=== PATIENT | female | born 1975 | race Caucasian/White ===

== ENCOUNTER 2017-05-12 10:47 | Inpatient (IN) | payer SELFPAY ==
[~2017-05-12] VITALS: Ht 162.6 cm; Wt 66.9 kg
[~2017-05-12 10:47] MED LIST: ACHD5005 PO; ALPR1T PO; CITA40TA19 PO; CLON0.5T60 PO; ESTR1TAB15 PO; ESTR2TAB4 PO; GABA300C PO; HYDR-1231 PO; HYDR-3714 PO; HYDR-623 PO; HYDR-707 PO; IBP800T PO; LEVO500T69 PO; LISI10TA PO; MELO7.5T PO; METH4TAB PO; MTC5T PO; PREG75CA PO; PRM25T PO; PROC10TA23 PO; PRX20T PO; SULF1TAB23 PO
--- OUTSIDE RECORDS SUMMARY | 2017-05-12 10:53 | XMS REPORT ---
Author Author CHATA HYATT Organization [employer] Address Unknown Phone Unavailable Care Team Providers Care Lean Manufacturing Specialist Name Role Phone CHATA HYATT CP Unavailable Allergies No Known Allergies Problems Problem Type Condition Code Onset Dates Condition Status Assessment Chronic pain G89.29 Active Problem Other malaise and fatigue 780.79 Active Problem Unspecified myalgia and myositis 729.1 Active Problem Neuropathy G62.9 Active Problem Anxiety F41.9 Active Problem Hypertension I10 Active Problem Diarrhea 787.91 Active Problem Acute pharyngitis 462 Active Problem Chronic pain G89.29 Active Problem Nausea with vomiting 787.01 Active Medications Medication Code System Code Instructions Start Date End Date Status Dosage Mobic [facility] [address]-20 7.5 MG Orally twice a day July 27, 2015 1 tablet Paxil [facility] [address]-72 40 mg Orally Once a day Oct 19, 2015 1 tablet in the morning Results No Known Results Summary Purpose eClinicalWorks Submission
--- OUTSIDE RECORDS SUMMARY | 2017-05-12 10:53 | XMS REPORT ---
Author Author CHATA HYATT [facility] e[employer] Address Unknown Phone Unavailable Care Team Providers Care Clinical Coder Name Role Phone CHATA HYATT Unavailable Allergies, Adverse Reactions, Alerts Substance Reaction Event Type Zofran Info Not Available Drug Allergy Ultram Info Not Available Drug Allergy Naproxen Info Not Available Drug Allergy Codeine Info Not Available Drug Allergy Problems Problem Type Condition Code Onset Dates Condition Status Assessment Gastroenteritis K52.9 Active Problem Other malaise and fatigue 780.79 Active Problem Unspecified myalgia and myositis 729.1 Active Assessment Anxiety F41.9 Active Assessment Chronic pain G89.29 Active Problem Neuropathy G62.9 Active Problem Anxiety F41.9 Active Problem Hypertension I10 Active Problem Diarrhea 787.91 Active Problem Acute pharyngitis 462 Active Problem Chronic pain G89.29 Active Problem Nausea with vomiting 787.01 Active Medications Medication Code System Code Instructions Start Date End Date Status Dosage Paxil [facility] [address]-49 40 mg Orally Once a day Oct 19, 2015 1 tablet in the morning Lisinopril [facility] [address]-70 20 mg Orally Once a day Sep 21, 2015 1 tablet Promethazine HCl [facility] [address]-86 25 MG Orally 3 times a day Oct 31, 2015 1 tablet as needed Valium [facility] [address]-14 5 mg Orally 3 times a day 1 tablet as needed Lyrica [facility] [address]-60 100 MG Orally Twice a day at noon and pm Oct 31, 2015 1 capsule Mobic [facility] [address]-96 7.5 MG Orally twice a day July 27, 2015 1 tablet Lyrica [facility] [address]-60 150 MG Orally Once a day in am Oct 31, 2015 1 capsule Percocet [facility] [address]-25 10-325 MG Orally 2 times a day Oct 19, 2015 1 tablet Procedures Procedure Coding System Code Date THER/PROPH/DIAG INJ, SC/IM CPT-4 63334 Oct 31, 2015 Office Visit, Est Pt., Level 3 CPT-4 20255 Oct 31, 2015 PHENERGAN 50MG/ML CPT-4 J2550 Oct 31, 2015 Vital Signs Date/Time: Oct 31, 2015 Cardiac Monitoring Heart Rate 100 bpm Weight 152.8 lbs Height 64 in BMI 26.23 Index Blood Pressure Diastolic 88 mmHg Blood Pressure Systolic 118 mmHg Results No Known Results Summary Purpose eClinicalWorks Submission
--- OUTSIDE RECORDS SUMMARY | 2017-05-12 10:53 | XMS REPORT ---
Author Author CHATA HYATT Organization [employer] Address Unknown Phone Unavailable Care Team Providers Care Hooker Operator Name Role Phone CHATA HYATT CP Unavailable Allergies No Known Allergies Problems Problem Type Condition Code Onset Dates Condition Status Assessment Neuropathy G62.9 Active Problem Other malaise and fatigue 780.79 Active Problem Unspecified myalgia and myositis 729.1 Active Problem Neuropathy G62.9 Active Problem Anxiety F41.9 Active Problem Hypertension I10 Active Problem Diarrhea 787.91 Active Problem Acute pharyngitis 462 Active Problem Chronic pain G89.29 Active Problem Nausea with vomiting 787.01 Active Medications Medication Code System Code Instructions Start Date End Date Status Dosage Lyrica [facility] [address]-59 100 MG Orally Twice a day Oct 31, 2015 1 capsule at noon and evening Lyrica [facility] [address]-84 150 MG Orally Once a day Oct 31, 2015 1 capsule in the morning Results No Known Results Summary Purpose eClinicalWorks Submission
--- OUTSIDE RECORDS SUMMARY | 2017-05-12 10:53 | XMS REPORT ---
Author Author CHATA HYATT Organization [employer] Address Unknown Phone Unavailable Care Team Providers Care Quality Analyst Name Role Phone CHATA HYATT CP Unavailable Allergies No Known Allergies Problems Problem Type Condition Code Onset Dates Condition Status Problem Other malaise and fatigue 780.79 Active Problem Unspecified myalgia and myositis 729.1 Active Problem Neuropathy G62.9 Active Problem Anxiety F41.9 Active Problem Hypertension I10 Active Problem Diarrhea 787.91 Active Problem Acute pharyngitis 462 Active Problem Chronic pain G89.29 Active Problem Nausea with vomiting 787.01 Active Medications No Known Medications Results No Known Results Summary Purpose [employer]ClinicalWorks Submission
--- OUTSIDE RECORDS SUMMARY | 2017-05-12 10:53 | XMS REPORT ---
Author Author CHAU FARRIS Organization [facility] Address [address] [place] [address] Care Team Providers Care Driver Service Technician Name Role Phone CHAU FARRIS Unavailable PROBLEMS Type Condition ICD9-CM Code VUZ95-CM Code Onset Dates Condition Status SNOMED Code Problem Other malaise and fatigue 780.79 Active 554311246 Problem Acute pharyngitis 462 Active 850436216 Problem Unspecified myalgia and myositis 729.1 Active 839876060 Problem Diarrhea 787.91 Active 40026478 Problem Nausea with vomiting 787.01 Active 05590461 Problem Depressive disorder, not elsewhere classified F32.9 Active 82603000 Problem Opioid abuse, unspecified F11.10 Active 4445221 Problem Anxiety F41.9 Active 16657659 Problem Neuropathy G62.9 Active 687723758 Problem Chronic pain G89.29 Active 94013445 Problem Hypertension I10 Active 13741082 ALLERGIES Unknown Allergies SOCIAL HISTORY No smoking Hx information available PLAN OF CARE Activity Details Follow Up 2 - 3 Days Reason: VITAL SIGNS MEDICATIONS Unknown Medications RESULTS No Results PROCEDURES Procedure Date Ordered Related Diagnosis Body Site ALCOHOL/DRUG SCREENING Feb 07, 2016 IMMUNIZATIONS No Known Immunizations
--- OUTSIDE RECORDS SUMMARY | 2017-05-12 10:53 | XMS REPORT ---
Author Author CHATA HYATT Organization [facility] Address [address] [place] [address] Care Team Providers Care Stogy Roller Name Role Phone CHATA HYATT Unavailable PROBLEMS Type Condition ICD9-CM Code PRE34-NZ Code Onset Dates Condition Status SNOMED Code Problem Acute pharyngitis 462 Active 502550724 Problem Nausea with vomiting 787.01 Active 99142044 Problem Diarrhea 787.91 Active 34536850 Problem Unspecified myalgia and myositis 729.1 Active 331691505 Problem Other malaise and fatigue 780.79 Active 105181027 Problem Depressive disorder, not elsewhere classified F32.9 Active 00647200 Problem Opioid abuse, unspecified F11.10 Active 8644691 Problem Anxiety F41.9 Active 77388046 Problem Chronic pain G89.29 Active 87995460 Problem Hypertension I10 Active 48253637 Problem Neuropathy G62.9 Active 539853173 ALLERGIES Substance Reaction Event Type Date Status Zofran anaphylaxis Drug Allergy Jan, Active Ultram Palpatations Drug Allergy Jan, Active Naproxen vomiting Drug Allergy Jan, Active Codeine itching Drug Allergy Jan, Active SOCIAL HISTORY No smoking Hx information available PLAN OF CARE Activity Details Follow Up prn Reason: VITAL SIGNS Height 64 in 2016-02-06 Weight 155.1 lbs 2016-02-06 Temperature 97.4 degrees Fahrenheit 2016-02-06 Heart Rate 88 bpm 2016-02-06 Respiratory Rate 20 2016-02-06 BMI 26.62 kg/m2 2016-02-06 Blood pressure systolic 102 mmHg 2016-02-06 Blood pressure diastolic 74 mmHg 2016-02-06 MEDICATIONS Medication Instructions Dosage Frequency Start Date End Date Duration Status Lisinopril 20 mg Orally Once a day 0.5 tablet 24h Sep, Active Paxil 40 mg Orally Once a day 1 tablet in the morning 24h Oct, 30 days Active Lyrica 150 MG Orally Once a day 1 capsule in the morning 24h 20 Oct, 2015 28 days Active Mobic 7.5 MG Orally twice a day 1 tablet 12h 30 Active Valium 5 mg Orally 3 times a day 1 tablet as needed 8h 28 days Active Percocet 10-325 MG Orally 2 times a day 1 tablet 12h 08 Oct, 2015 28 days Active Lyrica 100 MG Orally Twice a day 1 capsule at noon and evening 12h 20 Oct, 2015 28 days Active RESULTS Name Result Date Reference Range [employer] 2016-02-07 PROCEDURES Procedure Date Ordered Related Diagnosis Body Site No Charge Feb 06, 2016 Office Visit, Est Pt., Level 3 Feb 06, 2016 IMMUNIZATIONS No Known Immunizations
--- OUTSIDE RECORDS SUMMARY | 2017-05-12 10:56 | XMS REPORT ---
Author Author CHATA HYATT Organization [employer] Address Unknown Phone Unavailable Care Team Providers Care Scalp Specialist Name Role Phone CHATA HYATT CP [...]
--- OUTSIDE RECORDS SUMMARY | 2017-05-12 10:56 | XMS REPORT ---
Author Author DIANA PARKER [facility] Address [address] [place] [address] Care Team Providers Care Rail Tractor Operator Name Role Phone DIANA PARKER Unavailable PROBLEMS Type Condition ICD9-CM Code [id number] Code Onset Dates Condition Status SNOMED Code Problem Unspecified myalgia and myositis 729.1 Active 519804773 Problem Acute pharyngitis 462 Active 051162656 Problem Other malaise and fatigue 780.79 Active 557251536 Assessment Post-traumatic osteoarthritis of left knee M17.32 Oct, Active 819671085 Problem Hypertension I10 Active 22793789 Problem Neuropathy G62.9 Active 415515509 Problem Nausea with vomiting 787.01 Active 59931934 Problem Diarrhea 787.91 Active 18594591 Problem Anxiety F41.9 Active 58354965 Problem Chronic pain G89.29 Active 89438563 ALLERGIES Unknown Allergies SOCIAL HISTORY No smoking Hx information available PLAN OF CARE VITAL SIGNS Height 64 in 2015-10-12 Blood pressure systolic 130 mmHg 2015-10-12 Blood pressure diastolic 88 mmHg 2015-10-12 MEDICATIONS Unknown Medications RESULTS No Results PROCEDURES Procedure Date Ordered Related Diagnosis Body Site DRAIN/INJECT, JOINT/BURSA Oct 12, 2015 Office Visit, Est Pt., Level 3 Oct 12, 2015 DEPO MEDROL 80 MG/ML Oct 12, 2015 IMMUNIZATIONS No Known Immunizations
--- OUTSIDE RECORDS SUMMARY | 2017-05-12 10:56 | XMS REPORT ---
Author Author CHATA HYATT Organization [employer] Address Unknown Phone Unavailable Care Team Providers Care Cement Mason Apprentice Name Role Phone CHATA HYATT CP Unavailable Allergies No Known Allergies Problems Problem Type Condition Code Onset Dates Condition Status Assessment Anxiety F41.9 Active Problem Other malaise and fatigue 780.79 Active Problem Unspecified myalgia and myositis 729.1 Active Assessment Chronic pain G89.29 Active Problem Neuropathy G62.9 Active Problem Anxiety F41.9 Active Problem Hypertension I10 Active Problem Diarrhea 787.91 Active Problem Acute pharyngitis 462 Active Problem Chronic pain G89.29 Active Problem Nausea with vomiting 787.01 Active Medications Medication Code System Code Instructions Start Date End Date Status Dosage Lyrica [facility] [address]-04 100 MG Orally Twice a day Oct 31, 2015 1 capsule at noon and evening Valium [facility] [address]-57 5 mg Orally 3 times a day 1 tablet as needed Lyrica [facility] [address]-39 150 MG Orally Once a day Oct 31, 2015 1 capsule in the morning Percocet [facility] [address]-26 10-325 MG Orally 2 times a day Oct 19, 2015 1 tablet Results No Known Results Summary Purpose eClinicalWorks Submission
--- OUTSIDE RECORDS SUMMARY | 2017-05-12 10:56 | XMS REPORT ---
Author Author CHATA HYATT Organization [employer] Address Unknown Phone Unavailable Care Team Providers Care Photographic Platemaker Name Role Phone CHATA HYATT CP Unavailable Allergies No Known Allergies Problems Problem Type Condition Code Onset Dates Condition Status Assessment Chronic pain G89.29 Active Problem Other malaise and fatigue 780.79 Active Problem Unspecified myalgia and myositis 729.1 Active Assessment Anxiety F41.9 Active Problem Neuropathy G62.9 Active Problem Anxiety F41.9 Active Problem Hypertension I10 Active Problem Diarrhea 787.91 Active Problem Acute pharyngitis 462 Active Problem Chronic pain G89.29 Active Problem Nausea with vomiting 787.01 Active Medications Medication Code System Code Instructions Start Date End Date Status Dosage Valium [facility] 3[facility] [address]-38 5 mg Orally 3 times a day 1 tablet as needed Lyrica [facility]NOTE 3] [address]-93 150 MG Orally Once a day Oct 31, 2015 1 capsule in the morning Mobic [facility]NOTE 3] [address]-97 7.5 MG Orally twice a day July 27, 2015 1 tablet Paxil [facility]NOTE 3] [address]-38 40 mg Orally Once a day Oct 19, 2015 1 tablet in the morning Lyrica [facility]NOTE 3] [address]-74 100 MG Orally Twice a day Oct 31, 2015 1 capsule at noon and evening Percocet [facility]NOTE 3] [address]-43 10-325 MG Orally 2 times a day Oct 19, 2015 1 tablet Results No Known Results Summary Purpose eClinicalWorks Submission
--- OUTSIDE RECORDS SUMMARY | 2017-05-12 10:56 | XMS REPORT ---
Author Author CHATA HYATT Organization [employer] Address Unknown Phone Unavailable Care Team Providers Care Manager Environmental Health And Safety Name Role Phone CHATA HYATT CP Unavailable [...] Instructions Start Date End Date Status Dosage Percocet [facility] [address]-27 10-325 MG Orally 2 times a day Oct 19, 2015 1 tablet Valium [facility] [address]-23 5 mg Orally 3 times a day 1 tablet as needed Results No Known Results Summary Purpose [employer]ClinicalWorks Submission
--- OUTSIDE RECORDS SUMMARY | 2017-05-12 10:56 | XMS REPORT ---
Author Author CHATA HYATT [facility] eClinicalWorks Address Unknown Phone Unavailable Care Team Providers Care Heeler Name Role Phone CHATA HYATT CP Unavailable Allergies, Adverse Reactions, Alerts Substance Reaction [...] Active Problem Nausea with vomiting 787.01 Active Assessment Depression, unspecified depression type F32.9 Active Assessment Right leg pain M79.604 Active Assessment Chronic pain G89.29 Active Medications Medication Code System Code Instructions Start Date End Date Status Dosage Paxil [facility] [address]-88 40 mg May 18, 2013 1 tablet by Oral route 1 time per day Paxil [facility] [address]-60 40 mg Orally Once a day Oct 19, 2015 1 tablet in the morning Mobic [facility] [address]-67 7.5 MG Orally twice a day July 27, 2015 1 tablet Cyclobenzaprine HCl [facility] [address]-89 10 mg Orally 2 times a day August 02, 2015 1 tablet prior to PT and 1 after Valium [facility] [address]-95 5 mg Orally 3 times a day 1 tablet as needed Lyrica [facility] [address]-39 100 MG Orally 3 times a day June 14, 2015 1 capsule Percocet [facility] [address]-08 10-325 MG Orally 2 times a day Oct 19, 2015 1 tablet Lisinopril [facility] [address]-87 20 mg Orally Once a day Sep 21, 2015 1 tablet Procedures Procedure Coding System Code Date Office Visit, Est Pt., Level 3 CPT-4 72742 Oct 19, 2015 Vital Signs Date/Time: Oct 19, 2015 Cardiac Monitoring Heart Rate 104 bpm Weight 152.9 lbs Height 64 in BMI 26.24 Index Blood Pressure Diastolic 80 mmHg Blood Pressure Systolic 140 mmHg Results No Known Results Summary Purpose eClinicalWorks Submission
--- OUTSIDE RECORDS SUMMARY | 2017-05-12 10:56 | XMS REPORT ---
Author Author CHATA HYATT Organization [facility] Address [address] [place] [address] Care Team Providers Care Plate Former Name Role Phone CHATA HYATT Unavailable PROBLEMS Type Condition ICD9-CM Code PRU10-EU Code Onset Dates Condition Status SNOMED Code Problem Other malaise and fatigue 780.79 Active 949400071 Problem Acute pharyngitis 462 Active 122912231 Problem Unspecified myalgia and myositis 729.1 Active 574591886 Problem Diarrhea 787.91 Active 68583637 Problem Nausea with vomiting 787.01 Active 90606841 Problem Depressive disorder, not elsewhere classified F32.9 Active 94449808 Problem Opioid abuse, unspecified F11.10 Active 5304800 Problem Anxiety F41.9 Active 36651847 Problem Neuropathy G62.9 Active 042566703 Problem Chronic pain G89.29 Active 38600852 Problem Hypertension I10 Active 67857487 ALLERGIES Unknown Allergies SOCIAL HISTORY No smoking Hx information available PLAN OF CARE VITAL SIGNS MEDICATIONS Medication Instructions Dosage Frequency Start Date End Date Duration Status Mobic 7.5 MG Orally twice a day 1 tablet 12h 30 days Active Lisinopril 20 MG Orally Once a day 0.5 tablet 24h Sep, 30 days Active RESULTS No Results PROCEDURES No Known procedures IMMUNIZATIONS No Known Immunizations
--- OUTSIDE RECORDS SUMMARY | 2017-05-12 10:56 | XMS REPORT ---
Author Author CHATA HYATT [facility] Address [address] [place] [address] Care Team Providers Care Tobacco Blender Name Role Phone CHATA HYATT Unavailable PROBLEMS Type Condition ICD9-CM Code ROG08-ZA Code Onset Dates Condition Status SNOMED Code Problem Acute pharyngitis 462 Active 886464105 Problem Nausea with vomiting 787.01 Active 38154469 Problem Diarrhea 787.91 Active 36870226 Problem Unspecified myalgia and myositis 729.1 Active 589990305 Problem Other malaise and fatigue 780.79 Active 825468620 Problem Depressive disorder, not elsewhere classified F32.9 Active 30038492 Problem Opioid abuse, unspecified F11.10 Active 1913135 Problem Anxiety F41.9 Active 55681760 Problem Chronic pain G89.29 Active 85942745 Problem Hypertension I10 Active 54705306 Problem Neuropathy G62.9 Active 017583447 ALLERGIES Unknown Allergies SOCIAL HISTORY No smoking Hx information available PLAN OF CARE VITAL SIGNS MEDICATIONS Unknown Medications RESULTS No Results PROCEDURES No Known procedures IMMUNIZATIONS No Known Immunizations
--- OUTSIDE RECORDS SUMMARY | 2017-05-12 10:57 | XMS REPORT ---
Author Author CHATA HYATT Organization [employer] Address Unknown Phone Unavailable Care Team Providers Care Vehicle Fare Collector Name Role Phone CHATA HYATT CP Unavailable [...] Start Date End Date Status Dosage Paxil [facility] [address]-57 40 mg Orally Once a day Oct 19, 2015 1 tablet in the morning Results No Known Results Summary Purpose eClinicalWorks Submission
--- OUTSIDE RECORDS SUMMARY | 2017-05-12 10:57 | XMS REPORT ---
Author Author DENIZ Chaudhary Organization [facility] Address [address] [place] [address] Care Team Providers Care Ecmo Specialist Name Role Phone DENIZ Chaudhary Unavailable PROBLEMS Type Condition ICD9-CM Code YAV43-AY Code Onset Dates Condition Status SNOMED Code Problem Other malaise and fatigue 780.79 Active 007285934 Problem Acute pharyngitis 462 Active 853436650 Problem Unspecified myalgia and myositis 729.1 Active 766917203 Problem Diarrhea 787.91 Active 27083209 Problem Nausea with vomiting 787.01 Active 47304446 Problem Depressive disorder, not elsewhere classified F32.9 Active 52862859 Problem Opioid abuse, unspecified F11.10 Active 7469634 Problem Anxiety F41.9 Active 12540851 Problem Neuropathy G62.9 Active 661826590 Problem Chronic pain G89.29 Active 66685595 Problem Hypertension I10 Active 83785402 ALLERGIES Unknown Allergies SOCIAL HISTORY No smoking Hx information available PLAN OF CARE VITAL SIGNS MEDICATIONS Unknown Medications RESULTS No Results PROCEDURES No Known procedures IMMUNIZATIONS No Known Immunizations
--- OUTSIDE RECORDS SUMMARY | 2017-05-12 10:57 | XMS REPORT ---
Author Author CHATA HYATT Organization [employer] Address Unknown Phone Unavailable Care Team Providers Care Greenhouse Assistant Name Role Phone CHATA HYATT CP Unavailable [...]
--- OUTSIDE RECORDS SUMMARY | 2017-05-12 10:57 | XMS REPORT ---
Author Author DENIZ Chaudhary Organization [facility] Address [address] [place] [address] Care Team Providers Care Filtration Operator Name Role Phone DENIZ Chaudhary Unavailable PROBLEMS Type Condition ICD9-CM Code [id number] Code Onset Dates Condition Status SNOMED Code Problem Other malaise and fatigue 780.79 Active 033740427 Problem Acute pharyngitis 462 Active 278444252 Problem Unspecified myalgia and myositis 729.1 Active 067972051 Problem Diarrhea 787.91 Active 04781472 Problem Nausea with vomiting 787.01 Active 12333162 Problem Depressive disorder, not elsewhere classified F32.9 Active 54011350 Problem Opioid abuse, unspecified F11.10 Active 3436093 Problem Anxiety F41.9 Active 97398266 Problem Neuropathy G62.9 Active 554899273 Problem Chronic pain G89.29 Active 70598177 Problem Hypertension I10 Active 21641003 ALLERGIES Unknown Allergies SOCIAL HISTORY No smoking Hx information available PLAN OF CARE VITAL SIGNS MEDICATIONS Unknown Medications RESULTS No Results PROCEDURES No Known procedures IMMUNIZATIONS No Known Immunizations
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
--- OUTSIDE RECORDS SUMMARY | 2017-05-12 10:57 | XMS REPORT ---
Author Author CHATA HYATT Organization [facility] Address [address] [place] [address] Care Team Providers Care Doorperson Name Role Phone CHATA HYATT Unavailable PROBLEMS Type Condition ICD9-CM Code [id number] Code Onset Dates Condition Status SNOMED Code Problem Acute pharyngitis 462 Active 265835126 Problem Nausea with vomiting 787.01 Active 22598490 Problem Diarrhea 787.91 Active 78660053 Problem Unspecified myalgia and myositis 729.1 Active 434555693 Problem Other malaise and fatigue 780.79 Active 504727745 Problem Depressive disorder, not elsewhere classified F32.9 Active 81932706 Problem Opioid abuse, unspecified F11.10 Active 5100773 Problem Anxiety F41.9 Active 30925186 Problem Chronic pain G89.29 Active 00818222 Problem Hypertension I10 Active 92279158 Problem Neuropathy G62.9 Active 222604044 ALLERGIES Unknown Allergies SOCIAL HISTORY No smoking Hx information available PLAN OF CARE VITAL SIGNS MEDICATIONS Medication Instructions Dosage Frequency Start Date End Date Duration Status Lyrica 100 MG Orally Twice a day 1 capsule at noon and evening 12h Oct, 28 days Active Percocet 10-325 MG Orally 2 times a day 1 tablet 12h Jan, 28 days Active Valium 5 mg Orally 3 times a day 1 tablet as needed 8h 28 days Active Lyrica 150 MG Orally Once a day 1 capsule in the morning 24h Oct, 28 days Active RESULTS No Results PROCEDURES No Known procedures IMMUNIZATIONS No Known Immunizations
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
[2017-05-12] MEDS ORDERED: ANTACID SUSP 30 ML UDC (MYLANTA) PO ONE (11:15)
[2017-05-12] MEDS ORDERED: KETOROLAC 30 MG/ML VIAL IVP ONE (11:15)
[2017-05-12] MEDS ORDERED: LIDOCAINE 2% VISCOUS 15 ML UDC PO ONE (11:15)
[2017-05-12] MEDS ORDERED: PROMETHAZINE INJ 25 MG/ML (PHENERGAN) AMP IVP ONE (11:15)
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
[2017-05-12 11:37] LABS: BASOPHILS # (AUTO) 0.1 10^3/uL (0.0-0.1); BASOPHILS % (AUTO) 0 % (0-10); EOSINOPHILS # (AUTO) 0.7 10^3/uL (0.0-0.3); EOSINOPHILS % (AUTO) 3 % (0-10); HEMATOCRIT 48 % (35-52); HEMOGLOBIN 16.4 G/DL (11.5-16.0); LYMPHOCYTES # (AUTO) 2.5 X 10^3 (1.0-4.0); LYMPHOCYTES % (AUTO) 9 % (12-44); MEAN CORPUSCULAR HEMOGLOBIN 31 PG (25-34); MEAN CORPUSCULAR HGB CONC 34 G/DL (32-36); MEAN CORPUSCULAR VOLUME 90 FL (80-99); MEAN PLATELET VOLUME 10.2 FL (7.4-10.4); MONOCYTES # (AUTO) 1.5 X 10^3 (0.0-1.0); MONOCYTES % (AUTO) 6 % (0-12); NEUTROPHILS # (AUTO) 21.4 X 10^3 (1.8-7.8); NEUTROPHILS % (AUTO) 82 % (42-75); PLATELET COUNT 447 10^3/uL (130-400); RED BLOOD COUNT 5.29 10^6/uL (4.35-5.85); RED CELL DISTRIBUTION WIDTH 13.3 % (10.0-14.5); WHITE BLOOD COUNT 26.1 10^3/uL (4.3-11.0)
[2017-05-12] MEDS: LACTATED RINGERS 1,000 ML IV SCH ×2 (11:37→21:34)
[2017-05-12 11:43] LABS: BILIRUBIN,URINE NEGATIVE (NEGATIVE); CLARITY,URINE CLEAR; COLOR,URINE YELLOW; GLUCOSE, URINE (UA) NEGATIVE (NEGATIVE); KETONES,URINE NEGATIVE (NEGATIVE); LEUKOCYTE ESTERASE ,URINE NEGATIVE (NEGATIVE); NITRITE,URINE NEGATIVE (NEGATIVE); PH,URINE 5 (5-9); PROTEIN,URINE 2+ (NEGATIVE); UROBILINOGEN,URINE NORMAL (NORMAL)
[2017-05-12] MEDS ORDERED: IOHEXOL 350 MG/ML 100 ML (OMNIPAQUE 350) VIAL IV ONE (11:45)
[2017-05-12] MEDS ORDERED: NS 100 ML (IVPB) BAG IV ONE (11:45)
[2017-05-12 11:59] LABS: ALANINE AMINOTRANSFERASE 22 U/L (0-55); ALBUMIN 4.8 GM/DL (3.2-4.5); ALKALINE PHOSPHATASE 125 U/L (40-136); BILIRUBIN,TOTAL 0.3 MG/DL (0.1-1.0); BUN/CREATININE RATIO 29; CALCIUM 10.1 MG/DL (8.5-10.1); CARBON DIOXIDE 19 MMOL/L (21-32); CHLORIDE 109 MMOL/L (98-107); CREATININE SERUM 0.66 MG/DL (0.60-1.30); GFR ESTIMATED > 60; GLUCOSE 110 MG/DL (70-105); LIPASE 46 U/L (8-78); POTASSIUM 4.7 MMOL/L (3.6-5.0); SODIUM 138 MMOL/L (135-145); TOTAL PROTEIN 8.6 GM/DL (6.4-8.2)
[2017-05-12 11:59] LABS: AMPHETAMINE SCREEN, URINE NEGATIVE (NEGATIVE); BARBITURATE SCREEN URINE NEGATIVE (NEGATIVE); BENZODIAZEPINES SCREEN URINE POSITIVE (NEGATIVE); CANNABINOID SCREEN, URINE POSITIVE (NEGATIVE); COCAINE SCREEN URINE NEGATIVE (NEGATIVE); METHADONE STAT NEGATIVE (NEGATIVE); METHAMPHETAMINE SCREEN URINE S NEGATIVE (NEGATIVE); OPIATE SCREEN URINE NEGATIVE (NEGATIVE); OXYCODONE STAT NEGATIVE (NEGATIVE); PROPOXYPHENE STAT NEGATIVE (NEGATIVE); TRICYCLIC ANTIDEPRESSANTS SCRE NEGATIVE (NEGATIVE)
[2017-05-12 12:06] LABS: BAND NEUTROPHILS 2 %; BASOPHILS % (MANUAL) 0 %; EOSINOPHILS % (MANUAL) 3 %; LYMPHOCYTES % (MANUAL) 9 %; MONOCYTES % (MANUAL) 3 %; NEUTROPHILS % (MANUAL) 83 %; RBC MORPH NORMAL
[2017-05-12 12:09] LABS: BACTERIA,URINE FEW /HPF
[2017-05-12] MEDS ORDERED: fentaNYL INJECTION 100 MCG/2 ML AMP IVP ONE ×2 (12:15→13:00)
--- NOTE | 2017-05-12 12:15 | Diagnostic Imaging Report ---
PROCEDURE: CT abdomen and pelvis with contrast. TECHNIQUE: Multiple contiguous axial images were obtained through the abdomen and pelvis after administration of intravenous contrast. INDICATION: Abdominal pain. COMPARISON: None. FINDINGS: The lung bases are clear. There is mild diffuse hepatic steatosis. No focal hepatic mass is seen. Gallbladder is absent. There is no biliary dilatation. The pancreas appears unremarkable. The spleen is absent. The adrenal glands and kidneys appear unremarkable. The uterus is absent. There is an intussusception of the proximal loop of jejunum in left upper quadrant best demonstrated on series 2 image 36 which appears to be present on the delayed and dynamic sequences. This still may be transient and is of uncertain significance. No evidence of bowel obstruction. There is however, fluid seen within the small bowel and colon which is nondistended, possibly related to an enteritis. There is no free fluid or free air. There is no adenopathy. The abdominal aorta appears normal in caliber. No acute osseous abnormality is seen. IMPRESSION: 1. There is an intussusception within the left upper quadrant involving the proximal jejunal loop, of uncertain significance. This may be transient. Given the patient's history of left upper quadrant pain, small bowel follow-through study may be of benefit for further evaluation. 2. There is fluid within nondistended small bowel and colon which is nonspecific but could be seen with an enteritis/colitis. 3. Mild diffuse hepatic steatosis. 4. No additional abnormality is seen. Dictated by: Dictated on workstation # [id number]
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
[2017-05-12 13:45] VITALS: BP 148/98
[2017-05-12] MEDS ORDERED: CATHETER FLUSH 10 ML SYR IV PRN (13:45)
--- NOTE | 2017-05-12 13:49 | Diagnostic Imaging Report ---
INDICATION: Shortness of air and chest pain.. TECHNIQUE: Single view chest 12:50 PM. CORRELATION STUDY: 12/27/2012 FINDINGS: Gastric tube is present tip in the mid abdomen likely in distal aspect stomach. Atelectasis or less likely infiltrate of the lung bases. Remaining lung varela are clear. Heart size borderline. Vasculature also appears slightly prominent. [place] screw over the right glenoid is present. IMPRESSION: 1. Bibasilar areas of atelectasis. Borderline heart size and vasculature. Dictated by: Dictated on workstation # [id number]
[2017-05-12] MEDS: NS W/KCL 40 MEQ/L 1,000 ML IV SCH ×2 (13:57→21:50)
[2017-05-12] MEDS: fentaNYL INJECTION 100 MCG/2 ML AMP IV PRN ×8 (13:57→23:59)
[2017-05-12] MEDS: PROMETHAZINE INJ 25 MG/ML (PHENERGAN) AMP IV PRN (13:57)
[2017-05-12] MEDS ORDERED: PERMETHRIN (ELIMITE) 5% CR 60 GM TUBE TOP SCH (14:00)
[2017-05-12] MEDS ORDERED: PREG150C PO (14:24)
[2017-05-12] MEDS ORDERED: CLON2TAB3 PO (14:24)
[2017-05-12] MEDS ORDERED: PARO40TA3 PO (14:24)
[2017-05-12] MEDS ORDERED: CLON0.1T PO (14:28)
[2017-05-12] MEDS: PANTOPRAZOLE 40 MG/10 ML (PROTONIX) VIAL IV SCH (14:41)
[2017-05-12 17:00] VITALS: BP 140/76
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
[2017-05-12] MEDS ORDERED: METOCLOPRAMIDE INJ 10 MG/2 ML (REGLAN) IVP PRN (19:00)
[2017-05-12] MEDS ORDERED: PIPERACILLIN SODIUM/TAZOBACTAM 4.5 GM in NS (IVPB) 100 ML IV NR (19:13)
[2017-05-12 20:05] VITALS: BP 145/82
[2017-05-12] MEDS: PARoxetine 20 MG (PAXIL) TAB PO SCH (20:14)
[2017-05-12] MEDS: PREGABALIN 75 MG (LYRICA) CAP PO SCH (20:14)
[2017-05-12] MEDS: cloNIDine 0.1 MG (CATAPRES) TAB PO SCH (20:14)
[2017-05-13] VITALS: BP 122/81
[2017-05-13] MEDS: fentaNYL INJECTION 100 MCG/2 ML AMP IV PRN ×7 (01:51→22:05)
[2017-05-13] MEDS: PIPERACILLIN SODIUM/TAZOBACTAM 4.5 GM in NS (IVPB) 100 ML IV SCH ×2 (01:52→10:19)
[2017-05-13 04:00] VITALS: BP 117/70
[2017-05-13] MEDS: PROMETHAZINE INJ 25 MG/ML (PHENERGAN) AMP IV PRN (05:38)
[2017-05-13] MEDS: NS W/KCL 40 MEQ/L 1,000 ML IV SCH ×3 (05:38→15:34)
[2017-05-13] MEDS: LACTATED RINGERS 1,000 ML IV SCH (05:44)
[2017-05-13 05:53] LABS: BASOPHILS % (AUTO) 0 % (0-10); EOSINOPHILS # (AUTO) 0.9 10^3/uL (0.0-0.3); EOSINOPHILS % (AUTO) 8 % (0-10); HEMATOCRIT 38 % (35-52); HEMOGLOBIN 12.6 G/DL (11.5-16.0); LYMPHOCYTES # (AUTO) 3.9 X 10^3 (1.0-4.0); LYMPHOCYTES % (AUTO) 33 % (12-44); MEAN CORPUSCULAR HEMOGLOBIN 31 PG (25-34); MEAN CORPUSCULAR HGB CONC 34 G/DL (32-36); MEAN CORPUSCULAR VOLUME 93 FL (80-99); MEAN PLATELET VOLUME 10.2 FL (7.4-10.4); MONOCYTES # (AUTO) 0.6 X 10^3 (0.0-1.0); MONOCYTES % (AUTO) 5 % (0-12); NEUTROPHILS # (AUTO) 6.4 X 10^3 (1.8-7.8); NEUTROPHILS % (AUTO) 54 % (42-75); PLATELET COUNT 392 10^3/uL (130-400); RED BLOOD COUNT 4.02 10^6/uL (4.35-5.85); RED CELL DISTRIBUTION WIDTH 13.3 % (10.0-14.5); WHITE BLOOD COUNT 11.8 10^3/uL (4.3-11.0)
[2017-05-13 06:17] LABS: ALANINE AMINOTRANSFERASE 33 U/L (0-55); ALBUMIN 3.8 GM/DL (3.2-4.5); ALKALINE PHOSPHATASE 109 U/L (40-136); BILIRUBIN,TOTAL 0.7 MG/DL (0.1-1.0); BUN/CREATININE RATIO 19; CALCIUM 8.4 MG/DL (8.5-10.1); CARBON DIOXIDE 20 MMOL/L (21-32); CHLORIDE 108 MMOL/L (98-107); CREATININE SERUM 0.73 MG/DL (0.60-1.30); GFR ESTIMATED > 60; GLUCOSE 112 MG/DL (70-105); POTASSIUM 4.3 MMOL/L (3.6-5.0); SODIUM 138 MMOL/L (135-145); TOTAL PROTEIN 6.7 GM/DL (6.4-8.2)
[2017-05-13 08:00] VITALS: BP 165/97
[2017-05-13] MEDS ORDERED: DIATRIZOATE MEGLUM/SODIUM 37% 120 ML (GASTROGRAFIN) NG ONE (08:30)
[2017-05-13] MEDS: PANTOPRAZOLE 40 MG/10 ML (PROTONIX) VIAL IV SCH (10:16)
[2017-05-13] MEDS: cloNIDine 0.1 MG (CATAPRES) TAB PO SCH ×2 (10:20→20:40)
[2017-05-13] MEDS: PREGABALIN 75 MG (LYRICA) CAP PO SCH ×2 (10:21→20:40)
--- NOTE | 2017-05-13 11:16 | Diagnostic Imaging Report ---
INDICATION: Possible intussusception with abdominal pain. FINDINGS: The preliminary radiograph demonstrates a nonspecific bowel gas pattern. A nasogastric tube is in place. There are surgical clips in the right upper quadrant. The small bowel is of normal caliber throughout. A definitive intussusception is not appreciated. There are no intrinsic or extrinsic small bowel masses. The mucosa is grossly unremarkable. The transit time to the colon is approximately 90 minutes. IMPRESSION: Unremarkable small bowel series. Specifically, there is no evidence of intussusception. This may have been transient. Dictated by: Dictated on workstation # [id number]
[2017-05-13 12:00] VITALS: BP 135/68
[2017-05-13] MEDS ORDERED: diphenhydrAMINE 50 MG/ML INJ (BENADRYL) IVP NR (12:30)
[2017-05-13] MEDS ORDERED: ONDANSETRON 4 MG (ZOFRAN) ORAL DISSOLVE TAB PO PRN (16:00)
[2017-05-13 16:20] VITALS: BP 132/77
[2017-05-13] MEDS: diphenhydrAMINE 25 MG TAB (BENADRYL) PO PRN (16:34)
[2017-05-13] MEDS: oxyCODONE/APAP 5/325MG (PERCOCET 5) TABLET PO PRN ×2 (16:34→20:40)
--- NOTE | 2017-05-13 16:43 | Progress Note (SOAP) ---
Subjective Date Seen by Provider: May 13, 2017 Time Seen by Provider: 15:25 Subjective/Events-last exam small bowel contrast study negative for any intussusception or mechanical obstruction. She has been passing flatus and had liquid bowel movements. No nausea. NG tube has been removed. White cell count has decreased. She has since developed rashes all over her body with posterior occipital lymphadenitis. Review of Systems General: No Chills, No Night Sweats, No Fatigue, No Malaise HEENT: No Head Aches, No Eye Pain, No Ear Pain, No Dysphasia, No Sinus Congestion, No Post Nasal Drip, No Sore Throat Pulmonary: No Dyspnea, No Cough, No Pleuritic Chest Pain Cardiovascular: No: Chest Pain, Palpitations, Orthopnea, Paroxysmal Noc. Dyspnea, Edema, Lt Headedness Gastrointestinal: No: Nausea, Vomiting, Abdominal Pain, Diarrhea, Constipation , Melena, Hematochezia Genitourinary: No Dysuria, No Frequency, No Incontinence, No Hematuria, No Retention Musculoskeletal: No: other, neck pain, shoulder pain, arm pain, back pain, hand pain, leg pain, foot pain Neurological: No: Weakness, Numbness, Incoordination, Change in speech, Confusion, Seizures, Other skin rash, has been treated for scabies Objective Exam Vital Signs Date Time Temp Pulse Resp B/P (MAP) Pulse Ox O2 Delivery O2 Flow Rate FiO2 05/13/17 12:00 98.1 70 18 135/68 (90) 98 Room Air 05/13/17 09:22 Room Air 05/13/17 08:00 98.0 77 18 165/97 (119) 95 Room Air 05/13/17 04:00 97.4 75 18 117/70 (86) 92 Room Air 05/13/17 00:00 97.4 64 15 122/81 (95) 92 Room Air 05/12/17 20:05 98.1 73 20 145/82 (103) 97 Room Air 05/12/17 17:00 97.9 76 18 140/76 (97) 98 Room Air I & O 05/13/17 06:59 Intake Total 2800 ml Output Total 1550 ml Balance 1250 ml Capillary Refill : Less Than 3 Seconds General Appearance: Anxious HEENT: Normal ENT Inspection Neck: Lymphadenopathy (R) Respiratory: Lungs Clear Cardiovascular: Regular Rate, Rhythm Gastrointestinal: non tender, soft Neurologic/Psychiatric: Alert, Oriented x3 Skin: Rash Other comments nontender right posterior occipital lymphadenitis. Multiple rashes all over her body. Treated with Benadryl Results Lab Laboratory Tests 05/13/17 05:46: White Blood Count 11.8H, Red Blood Count 4.02L, Hemoglobin 12.6#, Hematocrit 38 , Mean Corpuscular Volume 93, Mean Corpuscular Hemoglobin 31, Mean Corpuscular Hemoglobin Concent 34, Red Cell Distribution Width 13.3, Platelet Count 392, Mean Platelet Volume 10.2, Neutrophils (%) (Auto) 54, Lymphocytes (%) (Auto) 33 , Monocytes (%) (Auto) 5, Eosinophils (%) (Auto) 8, Basophils (%) (Auto) 0, Neutrophils # (Auto) 6.4, Lymphocytes # (Auto) 3.9, Monocytes # (Auto) 0.6, Eosinophils # (Auto) 0.9H, Basophils # (Auto) 0.0, Sodium Level 138, Potassium Level 4.3, Chloride Level 108H, Carbon Dioxide Level 20L, Anion Gap 10, Blood Urea Nitrogen 14, Creatinine 0.73, Estimat Glomerular Filtration Rate > 60, BUN/ Creatinine Ratio 19, Glucose Level 112H, Calcium Level 8.4L, Total Bilirubin 0.7 , Aspartate Amino Transf (AST/SGOT) 48H, Alanine Aminotransferase (ALT/SGPT) 33 , Alkaline Phosphatase 109, Total Protein 6.7, Albumin 3.8 Assessment/Plan Assessment/Plan Assess & Plan/Chief Complaint lady with abdominal pain, initially concerning for intussusception. Currently symptoms improved with a negative radiologic evaluation. Abdomen soft. Dilated be advanced and possibly she will be discharged in the morning. Skin rashes be managed symptomatically. Final Diagnosis abdominal pain. Skin rash. Scabies Clinical Quality Measures Admission Status Admission Dx lady with acute onset of upper abdominal pain, currently improved. Minimal output from the nasogastric tube. No evidence of mechanical bowel obstruction. Reasonable to obtain a small bowel contrast study in the morning, mainly in view of an impression of small bowel intussusception and a CT scan. DVT/VTE Risk/Contraindication: Risk Factor Score Per Nursin RFS Level Per Nursing on Admit: 2=Moderate BRIJESH MEJIAS MD May 13, 2017 4:43 pm
[2017-05-13] MEDS ORDERED: PROMETHAZINE 25 MG (PHENERGAN) TAB PO PRN (19:00)
[2017-05-13 19:30] VITALS: BP 112/80
[2017-05-13] MEDS: PARoxetine 20 MG (PAXIL) TAB PO SCH (20:39)
[2017-05-14] VITALS: BP 128/52
[2017-05-14] MEDS: oxyCODONE/APAP 5/325MG (PERCOCET 5) TABLET PO PRN ×2 (00:47→04:44)
[2017-05-14] MEDS: diphenhydrAMINE 25 MG TAB (BENADRYL) PO PRN ×2 (00:47→08:21)
[2017-05-14] MEDS: fentaNYL INJECTION 100 MCG/2 ML AMP IV PRN ×5 (03:19→12:27)
[2017-05-14 04:00] VITALS: BP 132/73
[2017-05-14 08:00] VITALS: BP 121/85
[2017-05-14] MEDS: PANTOPRAZOLE 40 MG/10 ML (PROTONIX) VIAL IV SCH (08:13)
[2017-05-14] MEDS: PREGABALIN 75 MG (LYRICA) CAP PO SCH (08:13)
[2017-05-14] MEDS: cloNIDine 0.1 MG (CATAPRES) TAB PO SCH (08:19)
[2017-05-14] MEDS ORDERED: OXYC-197 PO (11:54)
--- NOTE | 2017-05-14 11:54 | Progress Note (SOAP) ---
Subjective Date Seen by Provider: May 14, 2017 Time Seen by Provider: 11:51 Subjective/Events-last exam Abdominal pain better. Tolerating diet. Reports pain over her feet and back, longstanding Review of Systems General: No Chills, No Night Sweats, No Fatigue, No Malaise HEENT: No Head Aches, No Eye Pain, No Ear Pain, No Dysphasia, No Sinus Congestion, No Post Nasal Drip, No Sore Throat Pulmonary: No Dyspnea, No Cough, No Pleuritic Chest Pain Cardiovascular: No: Chest Pain, Palpitations, Orthopnea, Paroxysmal Noc. Dyspnea, Edema, Lt Headedness Gastrointestinal: No: Nausea, Vomiting, Abdominal Pain, Diarrhea, Constipation , Melena, Hematochezia Genitourinary: No Dysuria, No Frequency, No Incontinence, No Hematuria, No Retention Musculoskeletal: neck pain, foot pain Neurological: No: Weakness, Numbness, Incoordination, Change in speech, Confusion, Seizures, Other skin rash, has been treated for scabies Objective Exam Vital Signs Date Time Temp Pulse Resp B/P (MAP) Pulse Ox O2 Delivery O2 Flow Rate FiO2 05/14/17 09:00 Room Air 05/14/17 08:00 97.8 87 16 121/85 (97) 95 Room Air 05/14/17 04:00 97.2 82 20 132/73 (92) 96 Room Air 05/14/17 00:00 97.3 87 18 128/52 (77) 97 Room Air 05/13/17 19:30 99.1 83 20 112/80 (91) 96 Room Air 05/13/17 16:20 99.1 88 18 132/77 (95) 94 Room Air 05/13/17 12:00 98.1 70 18 135/68 (90) 98 Room Air I & O 05/14/17 07:00 Intake Total 2320 ml Output Total 1950 ml Balance 370 ml Capillary Refill : Less Than 3 Seconds General Appearance: Anxious Neck: Non Tender Gastrointestinal: non tender, soft Skin: Warm/Dry Assessment/Plan Assessment/Plan Assess & Plan/Chief Complaint lady with abdominal pain, initially concerning for intussusception. Currently symptoms improved with a negative radiologic evaluation. Abdomen soft. Dilated be advanced and possibly she will be discharged in the morning. Skin rashes be managed symptomatically. 05/14/17: LUQ pain, improved. Negative SB study. Home with F/U with her primary Final Diagnosis LUQ pain, NOS Clinical Quality Measures Admission Status Admission Dx lady with acute onset of upper abdominal pain, currently improved. Minimal output from the nasogastric tube. No evidence of mechanical bowel obstruction. Reasonable to obtain a small bowel contrast study in the morning, mainly in view of an impression of small bowel intussusception and a CT scan. DVT/VTE Risk/Contraindication: Risk Factor Score Per Nursin RFS Level Per Nursing on Admit: 2=Moderate BRIJESH MEJIAS MD May 14, 2017 11:54 am
--- NOTE | 2017-05-14 11:55 | Discharge Inst-Simple/Standard ---
Discharge Inst-Standard Discharge Medications New, Converted or Re-Newed RX: RX on Chart Patient Instructions/Follow Up Plan of Care/Instructions/FU: F/U with her primary Activity as Tolerated: Yes Discharge Diet: No Restrictions BRIJESH MEJIAS MD May 14, 2017 11:55 am
[2017-05-14 12:00] VITALS: BP 128/75
[2017-05-14 13:15] VITALS: BP 128/75
== END 2017-05-14 13:15 | disposition home or self-care (01) | DRG 392 ==
LOC: EDUNIT# 10:47 → ER 10:49 → ICU 12:22 → 4TH 15:09
PROVIDERS: ADMIT Surgery; ATTEND Surgery
PROC: 0D9670Z Drainage of Stomach with Drainage Device, Via Natural or Artificial Opening (ICD-10-PCS; principal; 2017-05-12)
DX: R10.12 Left upper quadrant pain (principal); R11.2 Nausea with vomiting, unspecified; I10 Essential (primary) hypertension; F12.90 Cannabis use, unspecified, uncomplicated; F17.210 Nicotine dependence, cigarettes, uncomplicated; F41.9 Anxiety disorder, unspecified; F32.9 Major depressive disorder, single episode, unspecified; F90.9 Attention-deficit hyperactivity disorder, unspecified type; B86 Scabies; I88.9 Nonspecific lymphadenitis, unspecified
CPT/HCPCS: 36415; 71045; 74177; 74250; 80053; 80306; 81000; 83690; 84703; 85007; 85025; 85027; 96361; 96374; 96375

== ENCOUNTER 2017-05-23 09:42 | Emergency (ER) | payer SELFPAY ==
[~2017-05-23] VITALS: Ht 162.6 cm; Wt 70.3 kg
[~2017-05-23 09:42] MED LIST changes: +CLON0.1T PO; +CLON2TAB12 PO; +OXYC-197 PO; +PARO40TA3 PO; +PREG150C PO
[2017-05-23] MEDS ORDERED: PROMETHAZINE INJ 25 MG/ML (PHENERGAN) AMP IVP ONE (10:15)
[2017-05-23] MEDS ORDERED: diphenhydrAMINE 50 MG/ML INJ (BENADRYL) IVP ONE (10:15)
[2017-05-23] MEDS ORDERED: fentaNYL INJECTION 100 MCG/2 ML AMP IVP ONE ×2 (10:15→11:30)
[2017-05-23] MEDS ORDERED: NS IV 1000 ML 1,000 ML IV SCH (10:15)
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
[2017-05-23 10:41] LABS: BASOPHILS # (AUTO) 0.2 10^3/uL (0.0-0.1); BASOPHILS % (AUTO) 1 % (0-10); EOSINOPHILS # (AUTO) 1.8 10^3/uL (0.0-0.3); EOSINOPHILS % (AUTO) 16 % (0-10); HEMATOCRIT 42 % (35-52); LYMPHOCYTES # (AUTO) 3.7 X 10^3 (1.0-4.0); LYMPHOCYTES % (AUTO) 32 % (12-44); MEAN CORPUSCULAR HEMOGLOBIN 31 PG (25-34); MEAN CORPUSCULAR HGB CONC 34 G/DL (32-36); MEAN CORPUSCULAR VOLUME 91 FL (80-99); MEAN PLATELET VOLUME 10.4 FL (7.4-10.4); MONOCYTES # (AUTO) 0.7 X 10^3 (0.0-1.0); MONOCYTES % (AUTO) 6 % (0-12); NEUTROPHILS # (AUTO) 5.4 X 10^3 (1.8-7.8); NEUTROPHILS % (AUTO) 46 % (42-75); PLATELET COUNT 478 10^3/uL (130-400); RED BLOOD COUNT 4.58 10^6/uL (4.35-5.85); RED CELL DISTRIBUTION WIDTH 13.4 % (10.0-14.5); WHITE BLOOD COUNT 11.8 10^3/uL (4.3-11.0)
--- NOTE | 2017-05-23 10:58 | Diagnostic Imaging Report ---
INDICATION: Abdominal pain. Multiple contiguous axial CT images of the abdomen and pelvis are obtained with comparison made study of 05/12/2017. FINDINGS: Linear atelectasis and/or scarring is again noted in the right lung base. Unenhanced images of the liver reveal no focal abnormality. Gallbladder is surgically absent. There is no evidence of pancreatic or adrenal gland abnormality. 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 There is no evidence of free fluid in the abdomen or pelvis. Evaluation of kidneys limited without intravenous contrast, however there is no evidence of hydronephrosis or urinary tract calculus. Old fractures are seen in the anterior pelvis. There is no evidence of bowel dilatation or obstruction. IMPRESSION: No acute abnormality or significant change is seen when compared to previous study. There is no evidence of intussusception on the current exam. Dictated by: Dictated on workstation # [id number]
[2017-05-23 11:02] LABS: ALANINE AMINOTRANSFERASE 16 U/L (0-55); ALBUMIN 4.2 GM/DL (3.2-4.5); ALKALINE PHOSPHATASE 108 U/L (40-136); BILIRUBIN,TOTAL 0.2 MG/DL (0.1-1.0); BUN/CREATININE RATIO 13; CALCIUM 9.5 MG/DL (8.5-10.1); CARBON DIOXIDE 23 MMOL/L (21-32); CHLORIDE 108 MMOL/L (98-107); CREATININE SERUM 0.67 MG/DL (0.60-1.30); GFR ESTIMATED > 60; GLUCOSE 96 MG/DL (70-105); POTASSIUM 3.6 MMOL/L (3.6-5.0); SODIUM 141 MMOL/L (135-145); TOTAL PROTEIN 7.7 GM/DL (6.4-8.2)
[2017-05-23 11:14] LABS: BASOPHILS % (MANUAL) 1 %; EOSINOPHILS % (MANUAL) 16 %; LYMPHOCYTES % (MANUAL) 32 %; MONOCYTES % (MANUAL) 7 %; NEUTROPHILS % (MANUAL) 44 %; RBC MORPH NORMAL
[2017-05-23 11:48] LABS: BILIRUBIN,URINE NEGATIVE (NEGATIVE); CLARITY,URINE CLEAR; COLOR,URINE YELLOW; GLUCOSE, URINE (UA) NEGATIVE (NEGATIVE); KETONES,URINE NEGATIVE (NEGATIVE); LEUKOCYTE ESTERASE ,URINE NEGATIVE (NEGATIVE); NITRITE,URINE NEGATIVE (NEGATIVE); PH,URINE 7 (5-9); PROTEIN,URINE NEGATIVE (NEGATIVE); UROBILINOGEN,URINE NORMAL (NORMAL)
[2017-05-23 11:54] LABS: BACTERIA,URINE NEGATIVE /HPF; SQUAMOUS EPITHELIAL CELL,UR 0-2 /HPF
[2017-05-23 13:16] VITALS: BP 132/100
--- OUTSIDE RECORDS SUMMARY | 2017-05-25 07:15 | XMS REPORT ---
Author Author CHATA HYATT Organization [facility] Address [address] [place] [address] Care Team Providers Care Precision Assembler Bench Name Role Phone CHATA HYATT Unavailable PROBLEMS Type Condition ICD9-CM Code [id number] Code Onset Dates Condition Status SNOMED Code Problem Depressive disorder, not elsewhere classified F32.9 Active 83005219 Problem Opioid abuse, unspecified F11.10 Active 3102448 Problem Anxiety F41.9 Active 66465274 Problem Neuropathy G62.9 Active 008910247 Problem Chronic pain G89.29 Active 60857158 Problem Hypertension I10 Active 92168024 ALLERGIES No Information ENCOUNTERS Encounter Location Date Diagnosis [place] [id number] [address] Feb, Anxiety F41.9 ; Neuropathy G62.9 ; Cervicalgia M54.2 ; Acute pain of left knee M25.562 and Hypertension I10 [place] [address] 59943- [address]28 Oct, Chronic pain G89.29 [place] [address] 17142- 7662 Sep, [facility] [address] [place] [address] Sep, Opioid abuse, unspecified F11.10 [facility] [address] [place] [id number] [place] [address] 33981- 2349 Aug, Chronic pain G89.29 ; Anxiety F41.[address] [facility] [address] 15413- 1798 Aug, Depressive disorder, not elsewhere classified F32.9 and Anxiety F41.9 [place] [address] 82168- 1741 Aug, [facility] [address] [place] [id number] [place] [address] 10529- 2797 Aug, Chronic pain G89.29 [facility] [address] [place] [id number] [place] [address] 75875- 7224 Jul, Chronic pain G89.29 [facility] [address] [place] [id number] [place] [address] 10525- 0276 Jul, Chronic pain G89.29 [facility] [address] 14719- 6119 June, Chronic pain G89.29 [facility] [address] 40907- 4919 May, Chronic pain G89.29 [facility] [address] [place] [id number] [place] [address]205 -0119 May, Acute non-recurrent maxillary sinusitis J01.00 ; Thrush B37.[address] [facility] [address] [place] [id number] [place] [address] 64968- 4733 Apr, Chronic pain G89.29 ; Anxiety F41.9 and Hypertension I10 [place] [address] [place] [id number] [place] [address] 67958- 8052 Mar, Hypertension I10 ; Chronic pain G89.29 ; Anxiety F41.[address] [facility] [address] [place] [id number] [place] [address] 64990- 2505 Feb, [facility] [address] 16[address]- 1346 Jan, [facility] [address] [place] [address] Jan, Opioid abuse, unspecified F11.10 [facility] [address] [place] [id number] [place] [address] 51017- 0293 Jan, [facility] [address] [place] [address] Jan, [facility] [address] [place] [id number] [place] [address] 36007- 7993 Jan, Chronic pain G89.29 [facility] [address] [place] [id number] [place] [address] 08218- 4034 Jan, Chronic pain G89.29 ; Anxiety F41.[address] [facility] [address] 32763- 8987 Dec, Neuropathy G62.9 [facility] [address] 59160- 2011 Dec, Chronic pain G89.[address] [facility] [address] 65310- 2123 Dec, Chronic pain G89.29 [facility] [address] 61041- 9951 Dec, Chronic pain G89.[address] [facility] [address] 39834- 5194 Nov, [facility] [address] 07955- 9621 Nov, [facility] [address] [place] [id number] [place] [address] 50139- 8614 Nov, Anxiety F41.9 and Chronic pain G89.29 [facility] [address] [place] [id number] [place] [address] 80963- 5211 20 Oct, 2015 Gastroenteritis K52.9 ; Chronic pain G89.[address] [facility] [address] [place] [id number] [place] [address] 90898- 8577 Oct, [facility] [address] [place] [id number] [place] [address] 37069- 2256 08 Oct, 2015 Anxiety F41.9 ; Chronic pain G89.29 ; Right leg pain M79.604 and Depression, unspecified depression type F32.9 [facility] [address] [place] [id number] [place] [address] 38209- 5971 Oct, Post-traumatic osteoarthritis of left knee M17.32 [place] [address] [place] [id number] [place] [address] 72504- 9729 Sep, Hypertension I10 ; Neuropathy G62.9 and Chronic pain G89.29 [place] [address] 78801- 5322 Sep, [place] [address] 34932- 6993 Aug, [place] [address] 43279- 0450 Jul, Chronic pain G89.29 [place] [address] 62805- 3210 Jul, Chronic pain G89.29 [place] [address] [place] [id number] [place] [address] 33802- 2864 16 Jul, 2015 Laceration of right great toe, initial encounter S91.111A ; Acute pain of left knee M25.562 ; Encounter for immunization Z23 ; Essential hypertension I10 and Neuropathy G62.9 [place] [address] [place] [id number] [place] [address] 49818- 8115 June, Hypertension I10 ; Neuropathy G62.9 ; Anxiety F41.9 and Chronic pain G89.29 [place] [address] [place] [id number] [place] [address] 87104- 4157 May, [place] [address] 09569- 3384 May, [place] [address] [place] [id number] [place] [address] 64729- 1454 May, [place] [address] 92240- 5072 May, [facility] [address] [facility] [id number] [place] [address] May, [facility] [address] [facility] [id number] [place] [address]- 1496 May, IMMUNIZATIONS No Known Immunizations SOCIAL HISTORY Never Assessed REASON FOR VISIT refilled meds PLAN OF CARE VITAL SIGNS MEDICATIONS Medication Instructions Dosage Frequency Start Date End Date Duration Status Lyrica 100 MG Orally Twice a day 1 capsule in AM and at Noon 12h 19 Jul, 2016 28 days Active Mobic 7.5 MG Orally twice a day 1 tablet 12h 90 days Active Clonidine HCl 0.1 MG Orally twice a day 1 tablet 12h Apr, 30 day(s) Active Lyrica 150 MG Orally Once a day 1 capsule 24h Apr, 28 days Active Paxil 40 mg Orally Once a day 1 tablet in the morning 24h Oct, 30 days Active Lisinopril 20 mg Orally Once a day 0.5 tablet 24h Sep, 90 days Active RESULTS No Results PROCEDURES No Known procedures INSTRUCTIONS MEDICATIONS ADMINISTERED No Known Medications MEDICAL (GENERAL) HISTORY Type Description Date Medical [...]
--- OUTSIDE RECORDS SUMMARY | 2017-05-25 07:15 | XMS REPORT ---
Author Author CHATA HYATT Organization [facility] Address [address] [place] [address] Care Team Providers Care Research Leader Name Role Phone CHATA HYATT Unavailable PROBLEMS Type Condition ICD9-CM Code [id number] Code Onset Dates Condition Status SNOMED Code Problem Depressive disorder, not elsewhere classified F32.9 Active 70385242 Problem Opioid abuse, unspecified F11.10 Active 5006471 Problem Anxiety F41.9 Active 01145444 Problem Neuropathy G62.9 Active 690092888 Problem Chronic pain G89.29 Active 35941212 Problem Hypertension I10 Active 34042938 ALLERGIES No Information ENCOUNTERS Encounter Location Date Diagnosis [place] [address] [address] 2157 May, [address] [address]- [address] Feb, Anxiety F41.9 ; Neuropathy G62.9 ; Cervicalgia M54.2 ; Acute pain of left knee M25.562 and Hypertension I10 [place] [address] [place] [id number] [place] [address] 38844- 8958 Oct, Chronic pain G89.29 [place] [address] 37556- 8791 Sep, [facility] [address] [place] [address] Sep, Opioid abuse, unspecified F11.[address] 67335- 9780 Aug, Chronic pain G89.29 ; Anxiety F41.9 and Hypertension I10 [place] [address] 42369- 2225 Aug, Depressive disorder, not elsewhere classified F32.9 and Anxiety F41.9 [facility] [address] [place] [id number] [place] [address] 62299- 3012 Aug, [facility] [address] 56698- 0883 Aug, Chronic pain G89.29 [facility] [address] 78335- 2951 Jul, Chronic pain G89.29 [facility] [address] 75767- 9066 Jul, Chronic pain G89.29 [place] [address] 79520- 9808 June, Chronic pain G89.29 [place] [address] 12363- 1393 May, Chronic pain G89.29 [facility] [address] 73625 -7955 May, Acute non-recurrent maxillary sinusitis J01.00 ; Thrush B37.0 and Nausea R11.0 [place] [address] [place] [id number] [place] [address] 41735- 0825 Apr, Chronic pain G89.29 ; Anxiety F41.9 and Hypertension I10 [place] [address] [place] [id number] [place] [address] 23956- 6119 Mar, Hypertension I10 ; Chronic pain G89.29 ; Anxiety F41.9 and Neuropathy G62.9 [place] [address] 06622- 6396 Feb, [place] [address] 98353- 6182 Jan, [facility] [address] [place] [address] Jan, Opioid abuse, unspecified F11.10 [place] [address] [place] [id number] [place] [address] 79519- 3866 Jan, [facility] [address] [place] [address] Jan, [facility] [address] 73334- 4776 Jan, Chronic pain G89.29 [facility] [address] [place] [id number] [place] [address] 31230- 4896 Jan, Chronic pain G89.29 ; Anxiety F41.9 and Neuropathy G62.9 [facility] [address] 65154- 0305 Dec, Neuropathy G62.9 [facility] [address] 42643- 5591 Dec, Chronic pain G89.29 and Anxiety F41.9 [facility] [address] 07733- 4533 Dec, Chronic pain G89.29 [facility] [address] 844366- 9045 Dec, Chronic pain G89.29 and Anxiety F41.9 [facility] [address] [place] [id number] [place] [address] 36788- 9944 Nov, [facility] [address] [place] [id number] [place] [address] 58965- 0050 Nov, [facility] [address] 93902800- 6034 Nov, Anxiety F41.9 and Chronic pain G89.29 [facility] [address] 98893- 2949 Oct, Gastroenteritis K52.9 ; Chronic pain G89.29 and Anxiety F41.9 [facility] [address] [place] [id number] [place] [address] 97883- 3039 Oct, [facility] [address] [place] [id number] [place] [address]- 8[address] 08 Oct, 2015 Anxiety F41.9 ; Chronic pain G89.29 ; Right leg pain M79.604 and Depression, unspecified depression type F32.9 [place] [address] [place] [id number] [place] [address] 82547- 8359 Oct, Post-traumatic osteoarthritis of left knee M17.32 [place] [address] 69263- 3911 Sep, Hypertension I10 ; Neuropathy G62.9 and Chronic pain G89.29 [place] [address] 30458- 0361 Sep, [place] [address] 94985- 0823 Aug, [place] [address] 16047- 9779 Jul, Chronic pain G89.29 [place] [address] [place] [id number] [place] [address] 72770- 3251 Jul, Chronic pain G89.29 [place] [address] [place] [id number] [place] [address] 20185- 7784 Jul, Laceration of right great toe, initial encounter S91.111A ; Acute pain of left knee M25.562 ; Encounter for immunization Z23 ; Essential hypertension I10 and Neuropathy G62.9 [place] [address] [place] [id number] [place] [address] 13611- 7661 June, Hypertension I10 ; Neuropathy G62.9 ; Anxiety F41.9 and Chronic pain G89.29 [place] [address] [place] [id number] [place] [address] 36779- 3009 May, [place] [address] [place] [id number] [place] [address] 45543- 6920 May, [place] [address] 57224- 1186 May, [facility] [address] [facility] [id number] [place] [address]- 3506 May, [facility] [address] [facility] [id number] [place] [address]- 2546 May, [facility] [address] [facility] [id number] [place] [address]- 2546 May, IMMUNIZATIONS No Known Immunizations SOCIAL HISTORY Never Assessed REASON FOR VISIT Controlled Med Update PLAN OF CARE VITAL SIGNS MEDICATIONS Medication Instructions Dosage Frequency Start Date End Date Duration Status Lyrica 150 MG Orally Once a day 1 capsule 24h Apr, 28 days Active Lyrica 100 MG Orally Twice a day 1 capsule in AM and at Noon 12h Jul, 28 days Active RESULTS No Results PROCEDURES [...]
--- OUTSIDE RECORDS SUMMARY | 2017-05-25 07:16 | XMS REPORT ---
Author Author NAOMI LEON Organization [facility] Address [address] [place] [address] Care Team Providers Care Insurance Customer Service Specialist Name Role Phone NAOMI LEON Unavailable PROBLEMS Type Condition ICD9-CM Code [id number] Code Onset Dates Condition Status SNOMED Code Problem Depressive disorder, not elsewhere classified F32.9 Active 28373945 Problem Opioid abuse, unspecified F11.10 Active 9691581 Problem Anxiety F41.9 Active 15402124 Problem Neuropathy G62.9 Active 360923850 Problem Chronic pain G89.29 Active 84321469 Problem Hypertension I10 Active 56383636 ALLERGIES No Information ENCOUNTERS Encounter Location Date Diagnosis [place] [address] [address]- [address]117 May, [place] [address] [address]99- 9711 Feb, Anxiety F41.9 ; Neuropathy G62.9 ; Cervicalgia M54.2 ; Acute pain of left knee M25.562 and Hypertension I10 [place] [address] 52716- 0805 Oct, Chronic pain G89.29 [place] [address] 22131- 1674 Sep, [place] [address] [place] [address] Sep, Opioid abuse, unspecified F11.10 [place] [address] 23599- 5407 Aug, Chronic pain G89.29 ; Anxiety F41.9 and Hypertension I10 [place] [address] 40856- 2448 Aug, Depressive disorder, not elsewhere classified F32.9 and Anxiety F41.9 [facility] [address] 95267- 0074 Aug, [facility] [address] 79204- 0219 Aug, Chronic pain G89.29 [facility] [address] 72340- 5891 Jul, Chronic pain G89.29 [facility] [address] 64526- 4131 Jul, Chronic pain G89.29 [facility] [address] 82066- 7485 June, Chronic pain G89.29 [facility] [address] 24248- 0752 May, Chronic pain G89.29 [facility] [address] [address]40 -1264 May, Acute non-recurrent maxillary sinusitis J01.00 ; Thrush B37.0 and Nausea R11.0 [place] [address] 15463- 4071 Apr, Chronic pain G89.29 ; Anxiety F41.9 and Hypertension I10 [place] [address] 94584- 2851 Mar, Hypertension I10 ; Chronic pain G89.29 ; Anxiety F41.9 and Neuropathy G62.9 [facility] [address] 23892- 7947 Feb, [facility] [address] 08583- 1274 Jan, [facility] [address] [place] [address] Jan, Opioid abuse, unspecified F11.10 [facility] [address] [place] [address]- 4789 Jan, [facility] [address] [place] [address] Jan, [facility] [address] 41728- 6234 Jan, Chronic pain G89.29 [facility] [address] 62248- 3154 Jan, Chronic pain G89.29 ; Anxiety F41.9 and Neuropathy G62.9 [facility] [address] 65627- 3099 Dec, Neuropathy G62.9 [facility] [address] 878135- 4813 Dec, Chronic pain G89.29 and Anxiety F41.9 [facility] [address] 51000- 2500 Dec, Chronic pain G89.29 [facility] [address] 85457- 4354 Dec, Chronic pain G89.29 and Anxiety F41.9 [facility] [address] 07303- 2923 Nov, [facility] [address] [place] [id number] [place] [address] 35740- 7378 Nov, [facility] [address] 27667- 7917 Nov, Anxiety F41.9 and Chronic pain G89.29 [facility] [address] 60834- 5943 Oct, Gastroenteritis K52.9 ; Chronic pain G89.29 and Anxiety F41.9 [facility] [address] [place] [id number] [place] [address] 70343- 6648 19 Oct, 2015 [facility] [address] [place] [id number]- 2546 Oct, Anxiety F41.9 ; Chronic pain G89.29 ; Right leg pain M79.604 and Depression, unspecified depression type F32.9 [place] [address] [place] [id number] [place] [address] 17941- 7893 Oct, Post-traumatic osteoarthritis of left knee M17.32 [place] [address] [place] [id number] [place] [address] 28982- 1730 Sep, Hypertension I10 ; Neuropathy G62.9 and Chronic pain G89.29 [place] [address] [place] [id number] [place] [address] 94101- 7600 Sep, [place] [address] [place] [id number] [place] [address] 20223- 1747 Aug, [place] [address] [place] [id number] [place] [address] 29064- 6113 Jul, Chronic pain G89.29 [place] [address] [place] [id number] [place] [address] 03361- 2329 Jul, Chronic pain G89.29 [place] [address] 44962- 2916 Jul, Laceration of right great toe, initial encounter S91.111A ; Acute pain of left knee M25.562 ; Encounter for immunization Z23 ; Essential hypertension I10 and Neuropathy G62.9 [place] [address] [place] [id number] [place] [address] 34931- 7551 June, Hypertension I10 ; Neuropathy G62.9 ; Anxiety F41.9 and Chronic pain G89.29 [place] [address] 09058- 5591 May, [place] [address] [place] [id number] [place] [address] 99158- 8941 May, [place] [address] [place] [id number] [place] [address] 02980- 3902 May, [facility] [address] [facility] [id number] [place] [address] May, [facility] [address] [facility] [id number] [place] [address]- 5256 May, [facility] [address] [facility] [id number] [place] [address]- 8866 May, IMMUNIZATIONS No Known Immunizations SOCIAL HISTORY Never Assessed REASON FOR VISIT Emotional distress. PLAN OF CARE Activity Details Follow Up prn Reason: VITAL SIGNS MEDICATIONS Unknown Medications RESULTS No Results PROCEDURES Procedure Date Ordered Result Body Site Psychotherapy, patient &/family, 30 minutes, established patient August 28, 2016 INSTRUCTIONS MEDICATIONS ADMINISTERED No Known Medications MEDICAL [...]
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
== END 2017-05-23 12:43 | disposition home or self-care (01) ==
LOC: EDUNIT# 09:42 → ER 09:44
DX: R10.30 Lower abdominal pain, unspecified (principal); J42 Unspecified chronic bronchitis; Z87.828 Personal history of other (healed) physical injury and trauma; F41.9 Anxiety disorder, unspecified; I10 Essential (primary) hypertension; F90.9 Attention-deficit hyperactivity disorder, unspecified type; F32.9 Major depressive disorder, single episode, unspecified; F17.210 Nicotine dependence, cigarettes, uncomplicated; Z87.81 Personal history of (healed) traumatic fracture; Z87.19 Personal history of other diseases of the digestive system; Z88.5 Allergy status to narcotic agent; Z88.8 Allergy status to other drugs, medicaments and biological substances; Z88.6 Allergy status to analgesic agent; Z90.710 Acquired absence of both cervix and uterus; Z90.49 Acquired absence of other specified parts of digestive tract
CPT/HCPCS: 36415; 74176; 80053; 81000; 85007; 85027; 96361; 96374; 96375; 96376

== ENCOUNTER 2017-10-17 08:40 | Emergency (ER) | payer SELFPAY ==
[~2017-10-17] VITALS: Ht 162.6 cm; Wt 73.5 kg
[~2017-10-17 08:40] MED LIST changes: +HYOS0.1283 SL; -OXYC-197 PO; +OXYC1TAB87 PO; +PROM25TA14 PO
[2017-10-17] MEDS ORDERED: PROMETHAZINE INJ 25 MG/ML (PHENERGAN) AMP IVP STA (09:01)
[2017-10-17] MEDS ORDERED: LACTATED RINGERS 1,000 ML IV ONE ×2 (09:01→09:54)
[2017-10-17 09:07] LABS: BASOPHILS % (AUTO) 0 % (0-10); EOSINOPHILS # (AUTO) 0.2 10^3/uL (0.0-0.3); EOSINOPHILS % (AUTO) 1 % (0-10); HEMATOCRIT 44 % (35-52); HEMOGLOBIN 14.9 G/DL (11.5-16.0); LYMPHOCYTES % (AUTO) 19 % (12-44); MEAN CORPUSCULAR HEMOGLOBIN 31 PG (25-34); MEAN CORPUSCULAR HGB CONC 34 G/DL (32-36); MEAN CORPUSCULAR VOLUME 92 FL (80-99); MEAN PLATELET VOLUME 10.2 FL (7.4-10.4); MONOCYTES # (AUTO) 0.6 X 10^3 (0.0-1.0); MONOCYTES % (AUTO) 3 % (0-12); NEUTROPHILS # (AUTO) 16.6 X 10^3 (1.8-7.8); NEUTROPHILS % (AUTO) 77 % (42-75); PLATELET COUNT 468 10^3/uL (130-400); RED BLOOD COUNT 4.78 10^6/uL (4.35-5.85); RED CELL DISTRIBUTION WIDTH 13.6 % (10.0-14.5); WHITE BLOOD COUNT 21.5 10^3/uL (4.3-11.0)
[2017-10-17] MEDS ORDERED: diphenhydrAMINE 50 MG/ML INJ (BENADRYL) IVP ONE ×2 (09:15→10:00)
[2017-10-17] MEDS ORDERED: PANTOPRAZOLE 40 MG (PROTONIX) VIAL IV ONE (09:15)
[2017-10-17 09:16] LABS: PROTHROMBIN TIME PATIENT 13.3 SEC (12.2-14.7)
[2017-10-17 09:21] LABS: ALANINE AMINOTRANSFERASE 16 U/L (0-55); ALBUMIN 4.6 GM/DL (3.2-4.5); ALKALINE PHOSPHATASE 120 U/L (40-136); AMYLASE 84 U/L (25-125); BILIRUBIN,TOTAL 0.4 MG/DL (0.1-1.0); BUN/CREATININE RATIO 27; CALCIUM 10.1 MG/DL (8.5-10.1); CARBON DIOXIDE 23 MMOL/L (21-32); CHLORIDE 101 MMOL/L (98-107); CREATININE SERUM 0.79 MG/DL (0.60-1.30); GFR ESTIMATED > 60; GLUCOSE 102 MG/DL (70-105); LIPASE 91 U/L (8-78); POTASSIUM 3.9 MMOL/L (3.6-5.0); SODIUM 136 MMOL/L (135-145); TOTAL PROTEIN 8.1 GM/DL (6.4-8.2)
[2017-10-17 09:43] LABS: BAND NEUTROPHILS 0 %; BASOPHILS % (MANUAL) 0 %; EOSINOPHILS % (MANUAL) 0 %; LYMPHOCYTES % (MANUAL) 24 %; MONOCYTES % (MANUAL) 5 %; NEUTROPHILS % (MANUAL) 71 %; RBC MORPH NORMAL
[2017-10-17] MEDS ORDERED: PROMETHAZINE INJ 25 MG/ML (PHENERGAN) AMP IVP ONE (10:00)
[2017-10-17] MEDS ORDERED: SCOPOLAMINE 1.5 MG (TRANSDERM-SCOP) PATCH TD ONE (10:00)
[2017-10-17 10:17] LABS: BILIRUBIN,URINE NEGATIVE (NEGATIVE); CLARITY,URINE CLEAR; COLOR,URINE YELLOW; GLUCOSE, URINE (UA) NEGATIVE (NEGATIVE); KETONES,URINE NEGATIVE (NEGATIVE); LEUKOCYTE ESTERASE ,URINE NEGATIVE (NEGATIVE); NITRITE,URINE NEGATIVE (NEGATIVE); PH,URINE 6 (5-9); PROTEIN,URINE NEGATIVE (NEGATIVE); UROBILINOGEN,URINE NORMAL (NORMAL)
[2017-10-17 10:31] LABS: BENZODIAZEPINES SCREEN URINE POSITIVE (NEGATIVE); COCAINE SCREEN URINE NEGATIVE (NEGATIVE)
[2017-10-17 10:32] LABS: AMPHETAMINE SCREEN, URINE POSITIVE (NEGATIVE); BARBITURATE SCREEN URINE NEGATIVE (NEGATIVE); CANNABINOID SCREEN, URINE POSITIVE (NEGATIVE); METHADONE STAT NEGATIVE (NEGATIVE); METHAMPHETAMINE SCREEN URINE S POSITIVE (NEGATIVE); OPIATE SCREEN URINE NEGATIVE (NEGATIVE); OXYCODONE STAT NEGATIVE (NEGATIVE); PROPOXYPHENE STAT NEGATIVE (NEGATIVE); TRICYCLIC ANTIDEPRESSANTS SCRE NEGATIVE (NEGATIVE)
[2017-10-17 10:44] LABS: BACTERIA,URINE NEGATIVE /HPF; RBC,URINE RARE /HPF; SQUAMOUS EPITHELIAL CELL,UR RARE /HPF
--- NOTE | 2017-10-17 10:58 | Diagnostic Imaging Report ---
PROCEDURE: CT chest, abdomen, and pelvis without contrast. TECHNIQUE: Multiple contiguous axial images were obtained through the chest, abdomen, and pelvis without the use of intravenous contrast. INDICATION: Abdominal pain, nausea. Study compared with abdominal pelvic CT 09/30/2017. Chest: Tiny ghislaine-fissural micronodule along the minor fissure on the right lung base stable at 4 mm believed incidental. No suspicious lung mass. No evidence for pneumonia or edema. No appreciable adenopathy in the unopacified jc and mediastinum. The heart size within normal limits. There is a tiny hiatal hernia. No acute chest wall pathology. There is no pneumothorax or evidence for pneumonia. Abdomen and pelvis: Gallbladder surgically absent. There is no pathological bile duct dilatation. Nonfocal diminutive spleen stable. The adrenals and pancreas are unremarkable. No opaque kidney stone. There is no hydronephrosis. The aorta is nonaneurysmal. There is an increased fluid load in the mid to distal small bowel as well as throughout the majority of the colon without transition zone. The findings could be seen in the hypermobile state or nonspecific enterocolitis. No focal bowel wall thickening however is identified and there is no perienteric or pericolonic edema. The urinary bladder was empty. No fluid collection. No pneumatosis. No free gas. No focal inflammatory changes identified. IMPRESSION: Chest: Benign-appearing juxtapleural micronodule probably lymph node or other benign etiology. No acute chest disease. Abdomen and pelvis: Fluid mildly distends the mid to distal small bowel as well as the colon without transition zone or overtly obstructive features. Findings nonspecific but often associated with hypermotile state and can be seen in nonspecific enterocolitis. No significant bowel wall thickening and no focal inflammatory change identified and there is no fluid collection. Unobstructed urinary tracts and remaining unopacified abdominal pelvic viscera unremarkable. Dictated by: Dictated on workstation # [id number]
[2017-10-17] MEDS ORDERED: DICYCLOMINE 10 MG/ML (BENTYL) 2 ML AMP IM ONE (11:15)
[2017-10-17] MEDS ORDERED: HYOSCYAMINE 0.125 MG (LEVSIN) TAB PO ONE (11:15)
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
[2017-10-17] MEDS ORDERED: PROM25SU43 RC (11:31)
[2017-10-17] MEDS ORDERED: DICY20TA10 PO (11:31)
[2017-10-17] MEDS ORDERED: HYOS0.1283 SL (11:31)
--- NOTE | 2017-10-17 11:42 | Diagnostic Imaging Report ---
Indication: Vomiting and diarrhea. Time of exam: 11:03 AM Correlation is made with prior study from 05/12/2017. Heart size is normal. The lungs are clear. No free air is identified. There are surgical clips in the right abdomen. There appear to be scattered air-fluid levels throughout the abdomen. No significant distention of the bowel is seen. No pathologic calcifications are identified. Impression: Nonspecific bowel gas pattern with scattered air-fluid levels, correlating with CT findings. No free air is identified. Dictated by: Dictated on workstation # [id number]
[2017-10-17 12:15] VITALS: BP 122/86
== END 2017-10-17 12:15 | disposition home or self-care (01) ==
LOC: EDUNIT# 08:40 → ER 08:42
DX: R10.9 Unspecified abdominal pain (principal); R11.2 Nausea with vomiting, unspecified; R19.7 Diarrhea, unspecified; F12.10 Cannabis abuse, uncomplicated; F15.10 Other stimulant abuse, uncomplicated; I10 Essential (primary) hypertension; F90.9 Attention-deficit hyperactivity disorder, unspecified type; F41.9 Anxiety disorder, unspecified; F17.210 Nicotine dependence, cigarettes, uncomplicated; Z86.19 Personal history of other infectious and parasitic diseases; Z87.448 Personal history of other diseases of urinary system; Z90.81 Acquired absence of spleen; Z90.710 Acquired absence of both cervix and uterus; Z88.5 Allergy status to narcotic agent; Z88.8 Allergy status to other drugs, medicaments and biological substances; Z88.6 Allergy status to analgesic agent
CPT/HCPCS: 36415; 71250; 74022; 74176; 80053; 80306; 81000; 82150; 83690; 84484; 85007; 85027; 85610; 85730; 96361; 96372; 96374; 96375; 96376